=== PATIENT | male | born 1980 | race Two or more races ===

== ENCOUNTER 2025-09-29 16:28 | Emergency (ER) | payer BC, SELFPAY ==
[2025-09-29 16:30] VITALS: BMI 25.2
[2025-09-29 16:37] VITALS: BP 163/96; PULSE 57; RESP 16; TEMP 37.2; O2SAT 97
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
[2025-09-29] MEDS: ONDANSETRON INJ 2 MG/ML INJ 2 ML 4 MG IVP (17:08)
[2025-09-29] MEDS: MORPHINE SULF INJ 4 MG/ML VIAL IVP ×4 (17:10→18:40)
[2025-09-29 17:12] LABS: Basophils # (Auto) 0.0 Thou/mm3 (0.0-0.2); Basophils % (Auto) 1 % (0-2.5); Eosinophils # (Auto) 0.2 Thou/mm3 (0.0-0.5); Eosinophils % (Auto) 3 % (0-10); Hematocrit 43.3 % (41.0-53.0); Hemoglobin 14.6 g/dL (13.5-16.0); Immature Granulocytes Auto 0.01 Thou/mm3 (0.00-0.00); Lymphocytes # (Auto) 2.2 Thou/mm3 (1.0-4.8); Lymphocytes % (Auto) 33 % (10-50); Mean Corpuscular HGB Conc 33.7 g/dl (31.0-37.0); Mean Corpuscular Hemoglobin 29.2 pg (25.0-35.0); Mean Corpuscular Volume 87 fL (80-100); Monocytes # (Auto) 0.7 Thou/mm3 (0.0-0.8); Monocytes % (Auto) 10 % (0-12); Neutrophils # (Auto) 3.5 Thou/mm3 (1.8-7.7); Neutrophils % (Auto) 53 % (37-80); Nucleated Red Blood Cell # 0.00 Thou/mm3 (0.00-0.00); Nucleated Red Blood Cell % 0 /100 WBC (0); Platelet Count 231 Thou/mm3 (140-440); RDW Standard Deviation 39.8 fL (35.1-43.9); Red Blood Count 5.00 Miln/mm3 (4.50-5.90); White Blood Count 6.5 Thou/mm3 (3.8-10.6)
[2025-09-29] MEDS: SODIUM CHLORIDE 0.9% 1000 ML 1,000 ML 999 ML IV (17:13)
[2025-09-29] MEDS: SODIUM CHLORIDE 0.9% 1000 ML 1,000 ML 125 ML IV (17:13)
[2025-09-29] MEDS: DIPHTH,PERTUSS(ACELL),TET VAC 0.5 ML SYR- ADULT IMi (17:15)
[2025-09-29 17:33] LABS: Alanine Aminotransferase 23 U/L (10-49); Albumin, Serum 4.4 gm/dL (3.5-5.0); Albumin/Globulin Ratio 1.8 (1.2-2.2); Alkaline Phosphatase 59 U/L (46-116); Anion Gap 10 (7-16); Aspartate Amino Transferase 24 U/L (0-34); BUN/Creatinine Ratio 12 Ratio (12-20); Bilirubin,Total 0.4 mg/dL (0.3-1.2); Blood Urea Nitrogen 16 mg/dL (9-23); Calcium 9.0 mg/dL (8.3-10.6); Calcium (Corrected) 9.0 mg/dL (8.5-10.1); Carbon Dioxide 24.7 mMol/L (20.0-31.0); Chloride 106 mMol/L (98-107); Creatinine (Component) 1.3 mg/dL (0.6-1.3); Estimated Creatinine Clearance 64.8 mL/min (>60); Globulin 2.5 gm/dL (2.3-3.5); Glucose 107 mg/dL (74-106); Osmolality,Calculated 282 (275-295); Potassium 4.0 mMol/L (3.4-5.1); Sodium 141 mMol/L (136-145); Total Protein 6.9 gm/dL (5.7-8.2); eGFR > 60 See Note
[2025-09-29 17:37] LABS: INR 1.0 (0.9-1.3); Partial Thromboplastin Time 26.5 Seconds (22.0-36.0); Prothrombin Time 10.4 Seconds (9.0-12.2)
[2025-09-29 17:58] VITALS: BP 154/100; PULSE 64; RESP 18; O2SAT 97
[2025-09-29 18:19] VITALS: BP 150/94; PULSE 53; RESP 18; TEMP 36.8; O2SAT 95
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
[2025-09-29] MEDS: BACITRACIN OINT 15 GM TUBE TOP (18:39)
[2025-09-29 18:46] VITALS: BP 128/91; PULSE 63; RESP 20; TEMP 36.9; O2SAT 95
== END 2025-09-29 18:53 | disposition home or self-care (01) ==
PROVIDERS: Registered Nurse General Practice; Emergency Provider Emergency Medicine
DX: T20.27XA Burn of second degree of neck, initial encounter (principal); T20.212A Burn of second degree of left ear [any part, except ear drum], initial encounter; T20.211A Burn of second degree of right ear [any part, except ear drum], initial encounter; T21.11XA Burn of first degree of chest wall, initial encounter; T23.112A Burn of first degree of left thumb (nail), initial encounter; T20.12XA Burn of first degree of lip(s), initial encounter; T20.16XA Burn of first degree of forehead and cheek, initial encounter; T26.02XA Burn of left eyelid and periocular area, initial encounter; T26.01XA Burn of right eyelid and periocular area, initial encounter; X08.8XXA Exposure to other specified smoke, fire and flames, initial encounter; W40.1XXA Explosion of explosive gases, initial encounter; Y93.89 Activity, other specified; Z23 Encounter for immunization
CPT/HCPCS: 16020; 36415; 80053; 85025; 85610; 85730; 90471; 90715; 96361; 96374; 96375; 99284; J2270; J2405; J7030; A9270